=== PATIENT | male | born 1985 | race African-American/Black ===

== ENCOUNTER 2016-11-12 03:44 | Emergency (ER) | payer SELFPAY ==
[~2016-11-12] VITALS: Ht 188 cm; Wt 80.0 kg
[~2016-11-12 03:44] MED LIST: DICY10 PO; ZOFR4TAB3 SL
[2016-11-12 03:46] VITALS: BP 144/87; PULSE 72; RESP 18; TEMP 99.4; O2SAT 99
[2016-11-12] MEDS ORDERED: SODIUM CHLORIDE 0.9% FLUSH 5 ML FLUSH IVF PRN (04:00)
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
[2016-11-12] MEDS ORDERED: IBUP-988 PO (05:48)
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
== END 2016-11-12 06:51 | disposition home or self-care (01) ==
LOC: NEPE 03:44
DX: M54.2 Cervicalgia (principal); Z72.0 Tobacco use; Y09 Assault by unspecified means
CPT/HCPCS: 70450; 70486; 72125

== ENCOUNTER 2017-02-04 11:17 | Emergency (ER) | payer SELFPAY ==
[~2017-02-04] VITALS: Ht 185.4 cm; Wt 81.0 kg
[2017-02-04 11:17] VITALS: BP 143/80; PULSE 78; RESP 14; TEMP 98.2; O2SAT 99
[~2017-02-04 11:17] MED LIST changes: -DICY10 PO; +IBUP-988 PO
--- NOTE | 2017-02-04 11:36 | PD ---
HPI Chief Complaint: GI Complaint Time Seen by Provider: 11:22 Travel History International Travel<30 days: No Contact w/Intl Traveler<30days: No Traveled to known affect area: No History of Present Illness HPI This is a 31 year old male who has a history of pancreatic "ulcers" who presents with nausea, vomiting and diarrhea after eating dinner at [facility] last night. He reports immediately after eating dinner he started to have sharp pain in the lower abdomen, non-radiating, constant, associated with several episodes of vomiting and mucousy diarrhea overnight. This morning he noticed some bright red blood in his vomit. He also has had some lightheadedness and palpitations. He has never had symptoms like this before and thinks it had something to do with what he ate last night. PFSH Past Medical History Hx Anticoagulant Therapy: No Cardiovascular Problems: No Chemotherapy: No Cerebrovascular Accident: No Diabetes: No Patient Takes Glucophage: No Diminished Hearing: No Musculoskeletal: Yes (SCOLIOSIS) Respiratory: No Pancreatitis: Yes Ulcer: Yes Tetanus Vaccination: > 5 Years ?: Not Past Surgical History Surgical History: No Previous Surgery Social History Alcohol Use: Yes (few times per week) Tobacco Use: Yes (2 cigs per day) Substance Use: No Allergies-Medications (Allergen,Severity, Reaction): Coded Allergies: Latex (Verified Allergy, Severe, 09/20/16) HIVES Reported Meds & Prescriptions Reported Meds & Active Scripts Active Zofran Odt (Ondansetron Odt) 4 Mg Tab 4 Mg SL Q6HR PRN Review of Systems Except as stated in HPI: all other systems reviewed are Neg Physical Exam Narrative GENERAL:Well appearing, no acute distress SKIN: Focused skin assessment warm and dry. HEAD: Atraumatic. Normocephalic. EYES: Pupils equal and round. No injection or drainage. ENT: Moist mucous membranes NECK: Trachea midline. CARDIOVASCULAR: Regular rate and rhythm. No murmur appreciated. RESPIRATORY: Clear to auscultation. Breath sounds equal bilaterally. GASTROINTESTINAL: Abdomen soft, diffusely tender to palpation in the lower abdomen with no rebound/guarding. MUSCULOSKELETAL: No obvious deformities. NEUROLOGICAL: Awake and alert. No obvious cranial nerve deficits. Moving all extremities. PSYCHIATRIC: Appropriate mood and affect; insight and judgment normal. Data Data Last Documented VS Vital Signs Date Time Temp Pulse Resp B/P Pulse Ox O2 Delivery O2 Flow Rate FiO2 02/04/17 12:10 73 14 130/73 Room Air 02/04/17 11:17 98.2 99 Orders Complete Blood Count With Diff (02/04/17 11:41) Comprehensive Metabolic Panel (02/04/17 11:41) Lipase (02/04/17 11:41) Iv Access Insert/Monitor (02/04/17 11:41) Ecg Monitoring (02/04/17 11:41) Oximetry (02/04/17 11:41) Ondansetron Inj (Zofran Inj) (02/04/17 11:45) Sodium Chlor 0.9% 1000 Ml Inj (Ns 1000 M (02/04/17 11:41) Sodium Chloride 0.9% Flush (Ns Flush) (02/04/17 11:45) Ketorolac Inj (Toradol Inj) (02/04/17 11:45) Labs Laboratory Tests Test 02/04/17 11:40 White Blood Count 5.5 TH/MM3 Red Blood Count 4.22 MIL/MM3 Hemoglobin 13.2 GM/DL Hematocrit 39.0 % Mean Corpuscular Volume 92.4 FL Mean Corpuscular Hemoglobin 31.2 PG Mean Corpuscular Hemoglobin 33.8 % Concent Red Cell Distribution Width 13.8 % Platelet Count 199 TH/MM3 Mean Platelet Volume 8.9 FL Neutrophils (%) (Auto) 65.8 % Lymphocytes (%) (Auto) 23.3 % Monocytes (%) (Auto) 9.5 % Eosinophils (%) (Auto) 0.7 % Basophils (%) (Auto) 0.7 % Neutrophils # (Auto) 3.6 TH/MM3 Lymphocytes # (Auto) 1.3 TH/MM3 Monocytes # (Auto) 0.5 TH/MM3 Eosinophils # (Auto) 0.0 TH/MM3 Basophils # (Auto) 0.0 TH/MM3 CBC Comment DIFF FINAL Differential Comment Sodium Level 141 MEQ/L Potassium Level 3.7 MEQ/L Chloride Level 108 MEQ/L Carbon Dioxide Level 24.4 MEQ/L Anion Gap 9 MEQ/L Blood Urea Nitrogen 11 MG/DL Creatinine 1.25 MG/DL Estimat Glomerular Filtration 81 ML/MIN Rate Random Glucose 138 MG/DL Calcium Level 8.8 MG/DL Total Bilirubin 0.2 MG/DL Aspartate Amino Transf 33 U/L (AST/SGOT) Alanine Aminotransferase 30 U/L (ALT/SGPT) Alkaline Phosphatase 76 U/L Total Protein 7.1 GM/DL Albumin 3.8 GM/DL Lipase 93 U/L MDM Medical Decision Making Medical Screen Exam Complete: Yes Emergency Medical Condition: Yes Interpretation(s) afebrile, no tachycardia, hypertensive no leukocytosis electrolytes are reassuring Differential Diagnosis gastroenteritis, appendicitis,colitis Narrative Course This is a 31-year-old male who presents to the emergency department with nausea , vomiting, diarrhea and abdominal discomfort after eating at [employer]. Patient appears well on exam. Labs are obtained which demonstrate no leukocytosis. He has no fever. He's had CT imaging back in August for similar symptoms. I considered appendicitis but given the predominance of loose stool at think this is more likely a gastroenteritis and I don't want to subject him to further imaging is not necessary. Patient was given IV fluids and antiemetics and feels better. Patient will be discharged home. Diagnosis Primary Impression: Gastroenteritis Patient Instructions: General Instructions Additional Instructions: If you develop lightheadedness, dizziness, persistent vomiting, inability to eat , or severe abdominal pain return to the emergency department. Followup with your primary care physician in 2-3 days if your symptoms have not resolved. Wash your hands agressively after using the restroom as to not spread your illness to others. Do not return to work until your symptoms have resolved. Take Zofran as needed for nausea. Med/Other Pt SpecificInfo: Prescription(s) given Scripts Omeprazole 20 Mg Tab20 Mg PO DAILY #30 TAB Ref 0 Prov:Aissatou Ruggiero MD 02/04/17 Ondansetron Odt (Zofran Odt)4 Mg Tab4 Mg SL Q6HR PRN (Nausea/Vomiting) #15 TAB Prov:Aissatou Ruggiero MD 02/04/17 Disposition: 01 DISCHARGE HOME Condition: Stable Aissatou Ruggiero MD February 04, 2017 11:36
[2017-02-04] MEDS ORDERED: SODIUM CHLOR 0.9% 1000 ML INJ 1,000 ML IV SCH (11:41)
[2017-02-04] MEDS ORDERED: SODIUM CHLORIDE 0.9% FLUSH 10 ML FLUSH IV FLUSH PRN (11:45)
[2017-02-04] MEDS ORDERED: KETOROLAC TROMETHAMINE 30 MG/ML (IVP) VIAL IVP ONE (11:45)
[2017-02-04] MEDS ORDERED: ONDANSETRON HCL 4 MG/2 ML VIAL IVP ONE (11:45)
[2017-02-04 12:00] LABS: AUTOMATED NEUTROPHIL # 3.6 TH/MM3 (1.8-7.7); BASOPHIL % 0.7 % (0.0-2.0); EOSINOPHIL % 0.7 % (0.0-4.0); HEMO FLAGS DIFF FINAL; LYMPH % 23.3 % (9.0-44.0); LYMPHOCYTE # 1.3 TH/MM3 (1.0-4.8); MEAN CELL VOLUME 92.4 FL (80.0-100.0); MEAN CORPUSCULAR HEMOGLOBIN 31.2 PG (27.0-34.0); MEAN CORPUSCULAR HGB CONC 33.8 % (32.0-36.0); MONO % 9.5 % (0.0-8.0); NEUT % 65.8 % (16.0-70.0); PLATELET COUNT 199 TH/MM3 (150-450); RED BLOOD COUNT 4.22 MIL/MM3 (4.50-5.90); RED CELL DISTRIBUTION WIDTH 13.8 % (11.6-17.2); WHITE BLOOD COUNT 5.5 TH/MM3 (4.0-11.0)
[2017-02-04 12:10] VITALS: BP 130/73; PULSE 73; RESP 14
[2017-02-04 12:22] LABS: ALT (GPT) 30 U/L (12-78); ANION GAP 9 MEQ/L (5-15); AST (GOT) 33 U/L (15-37); BICARBONATE 24.4 MEQ/L (21.0-32.0); BLOOD UREA NITROGEN 11 MG/DL (7-18); CHLORIDE 108 MEQ/L (98-107); GLOMERULAR FILTRATION RATE 81 ML/MIN (>89); POTASSIUM 3.7 MEQ/L (3.5-5.1); SODIUM (NA) 141 MEQ/L (136-145)
[2017-02-04 12:24] LABS: ALKALINE PHOSPHATASE 76 U/L (45-117); TOTAL BILIRUBIN ADULT 0.2 MG/DL (0.2-1.0)
[2017-02-04] MEDS ORDERED: OMEP20TA PO (12:35)
[2017-02-04] MEDS ORDERED: ZOFR4TAB3 SL (12:35)
[2017-02-04 12:52] VITALS: RESP 16
== END 2017-02-04 12:54 | disposition home or self-care (01) ==
LOC: NEPD 11:17
DX: K52.9 Noninfective gastroenteritis and colitis, unspecified (principal); F17.210 Nicotine dependence, cigarettes, uncomplicated
CPT/HCPCS: 80053; 83690; 85025; 96361; 96374; 96375; 99284; J1885; J2405; J7030

== ENCOUNTER 2017-03-23 03:53 | Emergency (ER) | payer SELFPAY ==
[~2017-03-23] VITALS: Ht 185.4 cm; Wt 80.0 kg
[~2017-03-23 03:53] MED LIST changes: -IBUP-988 PO; +OMEP20TA PO
[2017-03-23 03:56] VITALS: BP 135/81; PULSE 71; RESP 16; TEMP 98.6; O2SAT 99
--- NOTE | 2017-03-23 04:30 | PD ---
HPI Chief Complaint: Injury Time Seen by Provider: 04:28 Travel History International Travel<30 days: No Contact w/Intl Traveler<30days: No Traveled to known affect area: No History of Present Illness HPI 31-year-old black male presents to emergency Department with complaints of right foot pain 2 days. He states that he had dropped something on his foot earlier but he states that he did not have any significant pain. He is also unsure whether this could be his foot wear. He is complaining of pain along the lateral aspect of his foot just before his little toe. Pain is worse with standing. Some relief with elevation. Mild in nature. Aching in quality. PFSH Past Medical History Narrative Medical Scoliosis Hx Anticoagulant Therapy: No Cardiovascular Problems: No Chemotherapy: No Cerebrovascular Accident: No Diabetes: No Diminished Hearing: No Musculoskeletal: Yes (SCOLIOSIS) Respiratory: No Pancreatitis: Yes Ulcer: Yes Tetanus Vaccination: < 5 Years Past Surgical History Surgical History: No Previous Surgery Social History Alcohol Use: Yes (few times per week) Tobacco Use: Yes (2 cigs per day) Substance Use: No Allergies-Medications (Allergen,Severity, Reaction): Coded Allergies: Latex (Verified Allergy, Severe, 03/23/17) HIVES Reported Meds & Prescriptions Reported Meds & Active Scripts Active No Active Prescriptions or Reported Medications Review of Systems Except as stated in HPI: all other systems reviewed are Neg Physical Exam Narrative GENERAL: This is a well-nourished, well-developed patient, in no apparent distress. SKIN: No rashes, ecchymoses or lesions. Warm and dry. HEAD: Atraumatic. Normocephalic. EYES: PERRL, EOMI, no discharge or injection. No scleral icterus. EARS: Clear NOSE: Nasal turbinates appear normal. THROAT: Mucosa pink and moist. Airway patent. NECK: Trachea midline. supple, moves head freely. LUNGS: Clear to auscultation. CV: Regular in rhythm. ABDOMEN: Soft nontender. EXT: No clubbing cyanosis or edema. Patient has tenderness along the distal third of the fifth metatarsal. There is no erythema, warmth or edema. No obvious deformity. The skin is intact. Patient has intact sensation with good distal pulses. Data Data Last Documented VS Vital Signs Date Time Temp Pulse Resp B/P Pulse Ox O2 Delivery O2 Flow Rate FiO2 6/29/17 03:56 98.6 71 16 135/81 99 Room Air Orders Foot, Complete ([id number]) (03/23/17 04:15) Naproxen (Naprosyn) (03/23/17 04:45) MDM Medical Decision Making Medical Screen Exam Complete: Yes Emergency Medical Condition: Yes Medical Record Reviewed: Yes Interpretation(s) Right foot: Negative for bony injury Differential Diagnosis MDM: High Differential diagnoses: Fracture, sprain, strain, dislocation, contusion, neurovascular injury Narrative Course X-ray reveals no obvious bony injury. Patient given Naprosyn 500 mg by mouth This is right foot pain Diagnosis Primary Impression: Right foot pain Patient Instructions: General Instructions Departure Forms: Tests/Procedures, Work Release Special Instructions: No work 2 days. Additional Instructions: Rest. Elevation. Ice packs for the next 3 days. Limits weight-bearing as tolerated. Medications as directed Follow-up with a shop helper or your doctor in one week. Return to the ER if any problems Med/Other Pt SpecificInfo: Prescription(s) given Scripts Diclofenac Sodium DR 75 Mg Tabdr75 Mg PO BID #20 TAB Prov:Jacinta Herrera DO 03/23/17 Disposition: 01 DISCHARGE HOME Condition: Stable Wade Stallings Mar 23, 2017 04:30
[2017-03-23] MEDS ORDERED: DICL75TA PO (04:40)
[2017-03-23] MEDS ORDERED: NAPROXEN 500 MG TAB PO ONE (04:45)
--- NOTE | 2017-03-23 04:49 | RADRPT ---
EXAM DATE/TIME: 03/23/2017 04:10 [facility] COMPARISON: No previous studies available for comparison. INDICATIONS : Right foot pain for over one week. Patient states he dropped something on his foot. MEDICAL HISTORY : None. SURGICAL HISTORY : None. ENCOUNTER: Initial ACUITY: 1 week PAIN SCORE: 10/10 LOCATION: Right foot. FINDINGS: Three view examination of the right foot demonstrates no soft tissue swelling, dislocation, or fractu re. The tarsal bones appear intact. The interphalangeal and metatarsophalangeal joints are intact. The calcaneus is intact. Bony mineralization is normal. CONCLUSION: No evidence of recent bony injury. Manjinder Joiner MD on March 23, 2017 at 4:47 Board Certified Radiologist. This report was verified electronically.
== END 2017-03-23 05:30 | disposition home or self-care (01) ==
LOC: NEPD 03:53
DX: M79.671 Pain in right foot (principal); M41.9 Scoliosis, unspecified; K85.90 Acute pancreatitis without necrosis or infection, unspecified; F17.210 Nicotine dependence, cigarettes, uncomplicated
CPT/HCPCS: 73630; 99283

== ENCOUNTER 2017-03-29 20:24 | Emergency (ER) | payer SELFPAY ==
[~2017-03-29] VITALS: Ht 185.4 cm; Wt 84.0 kg
[~2017-03-29 20:24] MED LIST changes: +DICL75TA PO
[2017-03-29 20:26] VITALS: BP 130/75; PULSE 88; RESP 16; TEMP 98.9; O2SAT 97
--- NOTE | 2017-03-29 22:24 | PD ---
HPI Chief Complaint: Injury Time Seen by Provider: 21:15 Travel History International Travel<30 days: No Contact w/Intl Traveler<30days: No Traveled to known affect area: No History of Present Illness HPI Patient comes in complaining of continued right foot pain for the lateral aspect distal fifth metatarsal. Patient reports same pain seen for here a week ago. Patient denies any new injuries. Patient describes pain as sharp stabbing like in nature and radiates medially. Pain is resolved with rest and is worse with standing or walking. Patient states he thinks he just stepped wrong on it. Patient's previous medical record was reviewed and shows that patient reported dropping something on his foot however patient denies this at this time. Denies any numbness or tingling. Patient reports his work note ran out. Patient states that he ran out of medicine previously prescribed even though he is prescribed a 10 day supply. Patient denies doing anything else for this. Patient states he has not followed up as previously instructed either. History Past Medical Histgory Hx Chemotherapy: No Social History Alcohol Use: Yes (few times per week) Tobacco Use: Yes (2 cigs per day) Allergies-Medications (Allergen,Severity, Reaction): Coded Allergies: Latex (Verified Allergy, Severe, 03/29/17) HIVES Reported Meds & Prescriptions Reported Meds & Active Scripts Active Diclofenac Sodium DR (Diclofenac Sodium) 75 Mg Tabdr 75 Mg PO BID Review of Systems Except as stated in HPI: all other systems reviewed are Neg Physical Exam Narrative GENERAL: Well-developed, well nourished, in no acute distress, and non-ill appearing. SKIN: Focused skin assessment warm and dry. Callouses noted bilateral feet plantar surface. HEAD: Atraumatic. Normocephalic. EYES: Pupils equal and round. EOMI. No scleral icterus. No injection or drainage. ENT: No nasal bleeding or discharge. Mucous membranes pink and moist. NECK: Trachea midline. Supple. No nuclear rigidity. CARDIOVASCULAR: Dorsal pulses 2+, intact, and equal bilaterally. Capillary refill less than 2 seconds. RESPIRATORY: No accessory muscle use. No respiratory distress. MUSCULOSKELETAL: No obvious deformities. No clubbing. No cyanosis. No edema. Full range of motion. Ankle: Neagative anterior draw and Ross test. Negative Kaye's sign. No laxity noted with passive inversion and eversion of BL ankles. Negative squeeze test. Pulses equal BL distal to injury. Capillary refill less than 2 seconds distal to injury and equal BL. Sensation equal BL 1st web space. FROM of toes distal to injury and equal BL. NV intact distal to injury and equal BL. Dorsal pulses equal BL. Patient reports tenderness over lateral aspect of right foot distal fifth metatarsal. There is no soft tissue swelling, crepitus, fluctuation, or other signs of injury or infection. NEUROLOGICAL: Awake and alert. No obvious cranial nerve deficits. Motor grossly within normal limits. Normal speech. PSYCHIATRIC: Appropriate mood and affect; insight and judgment normal. Data Data Last Documented VS Vital Signs Date Time Temp Pulse Resp B/P Pulse Ox O2 Delivery O2 Flow Rate FiO2 03/29/17 20:26 98.9 88 16 130/75 97 Room Air MDM Medical Screen Exam Complete: Yes Emergency Medical Condition: No Narrative Course History and physical exam findings are not consistent with an emergent medical condition. He was given the option of receiving additional care, but has declined. Therefore the appropriate counseling recommendations were discussed with the patient and he was instructed to follow-up with his primary care physician as soon as possible for reevaluation. Patient was also informed of community resources from which he can obtain additional care. He is agreeable and verbalizes an understanding of the proposed plan. The patient states he will immediately return to the emergency department if his current complaints do not improve, new symptoms arise, or emergent condition develops. Patient ambulated out of the emergency department without difficulty. Primary Impression: Encounter for medical screening examination Disposition: [facility]-ED USE ONLY Condition: Stable Mark Sutton Mar 29, 2017 22:24
== END 2017-03-29 22:01 | disposition left against medical advice (07) ==
LOC: NEPK 20:24
DX: M79.671 Pain in right foot (principal); Z72.0 Tobacco use
CPT/HCPCS: 99281

== ENCOUNTER 2017-04-11 09:32 | Emergency (ER) | payer SELFPAY ==
[~2017-04-11] VITALS: Ht 185.4 cm; Wt 80.0 kg
[~2017-04-11 09:32] MED LIST changes: -OMEP20TA PO; -ZOFR4TAB3 SL
[2017-04-11 09:33] VITALS: BP 142/72; PULSE 71; RESP 16; TEMP 98.5; O2SAT 98
--- NOTE | 2017-04-11 09:45 | PD ---
HPI . here because toenails changing colors and hardness on his foot Chief Complaint: Injury Time Seen by Provider: 09:44 Travel History International Travel<30 days: No Contact w/Intl Traveler<30days: No Traveled to known affect area: No History of Present Illness HPI 31 yr old male here with c/o his toenails changing colors. He tells me that he was seen a few weeks ago for right foot pain after something fell on his foot. He now has toenail discoloration. He also reports hardness on the lateral right foot. He wants to know what is going on. PFSH Past Medical History Hx Anticoagulant Therapy: No Cardiovascular Problems: No Chemotherapy: No Cerebrovascular Accident: No Diabetes: No Diminished Hearing: No Musculoskeletal: Yes (SCOLIOSIS) Respiratory: No Pancreatitis: Yes Ulcer: Yes Social History Alcohol Use: Yes (few times per week) Tobacco Use: Yes (2 cigs per day) Substance Use: No Allergies-Medications (Allergen,Severity, Reaction): Coded Allergies: Latex (Verified Allergy, Severe, 03/29/17) HIVES Reported Meds & Prescriptions Reported Meds & Active Scripts Active Diclofenac Sodium DR (Diclofenac Sodium) 75 Mg Tabdr 75 Mg PO BID Review of Systems General / Constitutional: No: Fever Eyes: No: Visual changes HENT: No: Headaches Cardiovascular: No: Chest Pain or Discomfort Respiratory: No: Shortness of Breath Gastrointestinal: No: Abdominal Pain Genitourinary: No: Dysuria Musculoskeletal: Positive: Pain (right foot pain ) Skin: No Rash Neurologic: No: Weakness Psychiatric: No: Depression Endocrine: No: Polydipsia Hematologic/Lymphatic: No: Easy Bruising Physical Exam Narrative GENERAL: AAO x 3, no acute distress, Well-nourished, well-developed patient. SKIN: Warm and dry. No visible rashes or bruising. No open wounds or blisters, feet are dry HEAD: Normocephalic and atraumatic. EYES: No scleral icterus. No injection or drainage. ENT: No nasal drainage noted. Mucous membranes pink. Airway patent. NECK: Supple, trachea midline. No JVD. CARDIOVASCULAR: Regular rate and rhythm without murmurs, gallops, or rubs. RESPIRATORY: Breath sounds equal bilaterally. No accessory muscle use. No rhonchi or rales. GASTROINTESTINAL: visual inspection normal EXTREMITIES: No cyanosis or edema. right foot with onychomycosis of all toes, there is fungus in between the interdigital spaces, there is also calluses to the right lateral foot BACK: No obvious deformity. NEURO: CN II-12 intact, PSYCH: AAO x 3, normal affect. Data Data Last Documented VS Vital Signs Date Time Temp Pulse Resp B/P Pulse Ox O2 Delivery O2 Flow Rate FiO2 04/11/17 09:33 98.5 71 16 142/72 98 Room Air MDM Medical Decision Making Medical Screen Exam Complete: Yes Emergency Medical Condition: No Medical Record Reviewed: Yes Differential Diagnosis Onychomycosis, tinea pedis, callous feet Narrative Course A medical screening exam was performed: At the time of evaluation the presenting medical condition was determined not to be of an emergent nature. The patient was given the option of receiving additional care, but declined. Patient was given options for additional community resources from which to obtain care. The Patient Has Been advised to seek medical attention for their presenting complaint. The patient has been advised to return to the ER at any time if an emergent condition develops. I've explained to patient that this is not a medical emergency. He can follow- up with a primary care physician as this fungus is not life-threatening nor is it actively causing wounds or blisters. He would benefit from callus remover. Diagnosis Primary Impression: Encounter for medical screening examination Condition: Stable Delia Landers Apr 11, 2017 09:45
== END 2017-04-11 10:09 | disposition left against medical advice (07) ==
LOC: NEPK 09:32
DX: B35.1 Tinea unguium (principal); K85.90 Acute pancreatitis without necrosis or infection, unspecified; M41.9 Scoliosis, unspecified; F17.210 Nicotine dependence, cigarettes, uncomplicated; Z79.899 Other long term (current) drug therapy
CPT/HCPCS: 99281